=== PATIENT | female | born 1995 | race Caucasian/White ===

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

== ENCOUNTER 2018-07-29 06:57 | Emergency (ER) ==
[2018-07-29 07:07] VITALS: BP 109/67; TEMP 99.7; BMI 19.5
--- NOTE | 2018-07-29 10:41 | ED.PDOC ---
General ED Provider: Dr. GRETA FIORE Chief Complaint: Abdominal Pain Stated Complaint: abdominal pain/flank pain 5 moths Time Seen by Physician: 07:00 (seen the pt's nurse at all times ) Mode of Arrival: Walk-In Information Source: Patient Exam Limitations: No limitations Nursing and Triage Documentation Reviewed and Agree: Yes Does patient meet sepsis criteria?: No System Inflammatory Response Syndrome: Not Applicable Sepsis Protocol: For patient's 13 years and over: Temp is 96.8 and below OR 101 and greater Pulse >90 BPM Resp >20/minute Acutely Altered Mental Status Are patient's symptoms suggestive of a new infection, such as: -Pneumonia -Skin, Soft Tissue -Endocarditis -UTI -Bone, Joint Infection -Implantable Device -Acute Abdominal Infection -Wound Infection -Meningitis -Blood Stream Catheter Infection -Unknown GI Complaint Exam - Abdominal Pain Complaint/Exam Onset: Gradual Duration: 1 day Symptoms Are: Still present Timing: Intermittent Initial Severity: Moderate Current Severity: Mild Location of Pain: Discrete Radiates To: Reports: Flank Character: Reports: Aching Aggravating: Reports: None Alleviating: Reports: None Associated Signs and Symptoms: Reports: Dysuria. Denies: Diaphoresis, Fever, Cough, Chest pain, Dizziness, Back pain, Constipation, Blood in stool, Urinary frequency, Decreased urine output, Decreased appetite, Vaginal bleeding, Vaginal discharge, Nausea, Vomiting, Diarrhea, Sore throat, Decreased activity AAA Risk Factors: Reports: None Cardiac Risk Factors: Reports: None Ectopic Risk Factors: Reports: None Ovarian Torsion Risk Factors: Reports: None Surgical Obstruction Risk Factors: Reports: None Related Surgical History: Reports: None Patient Rh Status: Unknown Abdominal Findings: Present: None Differential Diagnoses: UTI Review of Systems - Review Of Systems Constitutional: Reports: No symptoms Eyes: Reports: No symptoms Ears, Nose, Mouth, Throat: Reports: No symptoms Respiratory: Reports: No symptoms Cardiac: Reports: No symptoms GI: Reports: Abdominal pain : Reports: Dysuria, Flank pain Musculoskeletal: Reports: Back pain Skin: Reports: No symptoms Neurological: Reports: No symptoms Endocrine: Reports: No symptoms Hematologic/Lymphatic: Reports: No symptoms All Other Systems: Reviewed and Negative Past Medical History - Past Medical History Previously Healthy: Yes Endocrine: Reports: None Cardiovascular: Reports: None Respiratory: Reports: None Hematological: Reports: None Gastrointestinal: Reports: None Genitourinary: Reports: None Neuro/Psych: Reports: None Musculoskeletal: Reports: None Cancer: Reports: None Last Menstrual Period: 5 months - Surgical History General Surgical History: Reports: None - Family History Family History: Reports: None - Social History Smoking Status: Former smoker Hx Substance Use: No Alcohol Screening: None Physical Exam - Physical Exam Appearance: Well-appearing, No pain distress, Well-nourished Eyes: ANGELA, EOMI, Conjunctiva clear ENT: Ears normal, Nose normal, Oropharynx normal Respiratory: Airway patent, Breath sounds clear, Breath sounds equal, Respirations nonlabored Cardiovascular: RRR, Pulses normal, No rub, No murmur GI/: Soft, Nontender, No masses, Bowel sounds normal, No Organomegaly Musculoskeletal: Normal strength, ROM intact, No edema, No calf tenderness Skin: Warm, Dry, Normal color Neurological: Sensation intact, Motor intact, Reflexes intact, Cranial nerves intact, Alert, Oriented Psychiatric: Affect appropriate, Mood appropriate Re-Evaluation - Re-Evaluation Time of Re-Evaluation: 10:00 Status: Improved Vital Signs Stable: Yes Pain Level: 1/10 Appearance: NAD Lungs: Clear Skin: Warm and Dry Neuro: Alert and Oriented X3 CV: RRR - Re-Evaluation Time of Re-Evaluation: 10:41 Status: Unchanged Vital Signs Stable: Yes Appearance: NAD Skin: Warm and Dry Neuro: Alert and Oriented X3 CV: RRR Critical Care Note - Critical Care Note Total Time (mins): 0 Course - Course Hematology/Chemistry: 07/29/18 07:47 07/29/18 07:47 Orders, Labs, Meds: Lab Review 07/29/18 07/29/18 07/29/18 07:15 07:47 07:47 WBC 10.75 H RBC 3.60 L Hgb 11.2 L Hct 32.6 L MCV 90.6 MCH 31.1 H MCHC 34.4 RDW Coeff of Dar 13.2 Plt Count 185 Immature Gran % (Auto) 0.6 Neut % (Auto) 81.0 Lymph % (Auto) 8.9 L [place] % (Auto) 8.7 Eos % (Auto) 0.6 Baso % (Auto) 0.2 Immature Gran # (Auto) 0.1 Neut # (Auto) 8.7 H Lymph # (Auto) 1.0 [place] # (Auto) 0.9 Eos # (Auto) 0.1 Baso # (Auto) 0.0 Sodium 135.1 Potassium 3.26 L Chloride 105.2 Carbon Dioxide 18.4 L Anion Gap 14.76 BUN 6.8 L Creatinine 0.34 L Estimated GFR (MDRD) 243.00 BUN/Creatinine Ratio 20.00 Glucose 89.3 Lactic Acid Calcium 8.82 Total Bilirubin 0.40 AST 23.8 ALT 20.5 Alkaline Phosphatase 56.7 Total Protein 6.72 Albumin 3.90 Globulin 2.82 Albumin/Globulin Ratio 1.38 Procalcitonin Urine Color Yellow Urine Clarity Turbid Urine pH 5.5 Ur Specific Dell 1.025 Urine Protein 1+ Urine Glucose (UA) Negative Urine Ketones Trace Urine Blood 1+ Urine Nitrite Positive Urine Bilirubin Negative Urine Urobilinogen 0.2 Ur Leukocyte Esterase 2+ Urine Microscopic RBC 10-20 Urine Microscopic WBC Tntc Ur Squamous Epith Cells 2-5 Amorphous Sediment 3+ Urine Bacteria 4+ 07/29/18 07/29/18 07:47 07:47 WBC RBC Hgb Hct MCV MCH MCHC RDW Coeff of Dar Plt Count Immature Gran % (Auto) Neut % (Auto) Lymph % (Auto) [place] % (Auto) Eos % (Auto) Baso % (Auto) Immature Gran # (Auto) Neut # (Auto) Lymph # (Auto) [place] # (Auto) Eos # (Auto) Baso # (Auto) Sodium Potassium Chloride Carbon Dioxide Anion Gap BUN Creatinine Estimated GFR (MDRD) BUN/Creatinine Ratio Glucose Lactic Acid 0.51 L Calcium Total Bilirubin AST ALT Alkaline Phosphatase Total Protein Albumin Globulin Albumin/Globulin Ratio Procalcitonin 0.05 Urine Color Urine Clarity Urine pH Ur Specific Dell Urine Protein Urine Glucose (UA) Urine Ketones Urine Blood Urine Nitrite Urine Bilirubin Urine Urobilinogen Ur Leukocyte Esterase Urine Microscopic RBC Urine Microscopic WBC Ur Squamous Epith Cells Amorphous Sediment Urine Bacteria Orders Category Date Time Status BLOOD CULTURE Stat LAB 07/29/18 07:47 Received CBC W/ AUTO DIFF Stat LAB 07/29/18 07:47 Completed COMPREHENSIVE METABOLIC PANEL Stat LAB 07/29/18 07:47 Completed LACTIC ACID Stat LAB 07/29/18 07:47 Completed PROCALCITONIN Stat LAB 07/29/18 07:47 Completed URINALYSIS C & S IF INDICATED Stat LAB 07/29/18 07:15 Completed URINE CULTURE Stat LAB 07/29/18 07:30 Received Ceftriaxone Sodium [Rocephin] MEDS 07/29/18 10:56 Discontinued 1 gm .ROUTE .STK-MED ONE Ceftriaxone Sodium [Rocephin] 1 gm MEDS 07/29/18 10:45 Discontinued 0.9 % Sodium Chloride [Sodium Chloride] 50 ml IV ONCE Ringers Lactated Solution [Lactated Ringers] 1,000 ml MEDS 07/29/18 11:01 Discontinued IV BOLUS Sodium Chloride 0.9% [Sodium Chloride] 1,000 ml MEDS 07/29/18 10:44 Discontinued IV BOLUS Medications Discontinued Medications Generic Name Dose Route Start Last Admin Trade Name Freq PRN Reason Stop Dose Admin Sodium Chloride 1,000 mls @ 1,000 mls/hr 07/29/18 10:44 07/29/18 11:07 Sodium Chloride IV 07/29/18 11:43 Not Given BOLUS STA Ceftriaxone Sodium 1 gm/ 50 mls @ 75 mls/hr 07/29/18 10:45 07/29/18 11:06 Sodium Chloride IV 07/29/18 11:24 75 mls/hr ONCE STA Administration Lactated Ringer's 1,000 mls @ 1,000 mls/hr 07/29/18 11:01 07/29/18 11:05 Lactated Ringers IV 07/29/18 12:00 1,000 mls/hr BOLUS STA Administration Vital Signs: Temp Pulse Resp BP Pulse Ox 07/29/18 06:59 99.7 F H 81 16 109/67 98 Departure - Departure Time of Disposition: 13:00 Disposition: HOME SELF-CARE Discharge Problem: UTI (urinary tract infection) Qualifiers: Urinary tract infection type: site unspecified Instructions: Urinary Tract Infection in Children (ED), Urinary Tract Infection in Women (ED), Urinary Tract Infection in (ED) Condition: Good Pt referred to PMD for follow-up: Yes IPMP verified?: No Additional Instructions: Please call your Family Physician as soon as possible to schedule a follow-up appointment.Please call your Family Physician as soon as possible to schedule a follow-up appointment. stephenie KEARNS WOULD LIKE YOU TO SEE THE [facility] IN AM. DO NO TAKE MEDS UNTIL TOMORROW General ED Provider: Dr. GRETA FIORE Chief Complaint: Abdominal Pain Stated Complaint: abdominal pain/flank pain 5 moths Time Seen by Physician: 07:00 (seen the pt's nurse at all times ) Mode of Arrival: Walk-In Information Source: Patient Exam Limitations: No limitations Nursing and Triage Documentation Reviewed and Agree: Yes Does patient meet sepsis criteria?: No System Inflammatory Response Syndrome: Not Applicable Sepsis Protocol: For patient's 13 years and over: Temp is 96.8 and below OR 101 and greater Pulse >90 BPM Resp >20/minute Acutely Altered Mental Status Are patient's symptoms suggestive of a new infection, such as: -Pneumonia -Skin, Soft Tissue -Endocarditis -UTI -Bone, Joint Infection -Implantable Device -Acute Abdominal Infection -Wound Infection -Meningitis -Blood Stream Catheter Infection -Unknown GI Complaint Exam - Abdominal Pain Complaint/Exam Onset: Gradual Duration: 1 day Symptoms Are: Still present Timing: Intermittent Initial Severity: Moderate Current Severity: Mild Location of Pain: Discrete Radiates To: Reports: Flank Character: Reports: Aching Aggravating: Reports: None Alleviating: Reports: None Associated Signs and Symptoms: Reports: Dysuria. Denies: Diaphoresis, Fever, Cough, Chest pain, Dizziness, Back pain, Constipation, Blood in stool, Urinary frequency, Decreased urine output, Decreased appetite, Vaginal bleeding, Vaginal discharge, Nausea, Vomiting, Diarrhea, Sore throat, Decreased activity AAA Risk Factors: Reports: None Cardiac Risk Factors: Reports: None Ectopic Risk Factors: Reports: None Ovarian Torsion Risk Factors: Reports: None Surgical Obstruction Risk Factors: Reports: None Related Surgical History: Reports: None Patient Rh Status: Unknown Abdominal Findings: Present: None Differential Diagnoses: UTI Past Medical History - Past Medical History Previously Healthy: Yes Endocrine: Reports: None Cardiovascular: Reports: None Respiratory: Reports: None Hematological: Reports: None Gastrointestinal: Reports: None Genitourinary: Reports: None Neuro/Psych: Reports: None Musculoskeletal: Reports: None Cancer: Reports: None Last Menstrual Period: 5 months - Surgical History General Surgical History: Reports: None - Family History Family History: Reports: None - Social History Smoking Status: Former smoker Hx Substance Use: No Alcohol Screening: None Physical Exam - Physical Exam Appearance: Well-appearing, No pain distress, Well-nourished Eyes: ANGELA, EOMI, Conjunctiva clear ENT: Ears normal, Nose normal, Oropharynx normal Respiratory: Airway patent, Breath sounds clear, Breath sounds equal, Respirations nonlabored Cardiovascular: RRR, Pulses normal, No rub, No murmur GI/: Soft, Nontender, No masses, Bowel sounds normal, No Organomegaly Musculoskeletal: Normal strength, ROM intact, No edema, No calf tenderness Skin: Warm, Dry, Normal color Neurological: Sensation intact, Motor intact, Reflexes intact, Cranial nerves intact, Alert, Oriented Psychiatric: Affect appropriate, Mood appropriate Re-Evaluation - Re-Evaluation Time of Re-Evaluation: 10:00 Status: Improved Vital Signs Stable: Yes Pain Level: 10 Appearance: NAD Lungs: Clear Skin: Warm and Dry Neuro: Alert and Oriented X3 CV: RRR - Re-Evaluation Time of Re-Evaluation: 10:41 Status: Unchanged Vital Signs Stable: Yes Appearance: NAD Skin: Warm and Dry Neuro: Alert and Oriented X3 CV: RRR Critical Care Note - Critical Care Note Total Time (mins): 0 Course - Course Hematology/Chemistry: 07/29/18 07:47 07/29/18 07:47 Orders, Labs, Meds: Lab Review 07/29/18 07/29/18 07/29/18 07:15 07:47 07:47 WBC 10.75 H RBC 3.60 L Hgb 11.2 L Hct 32.6 L MCV 90.6 MCH 31.1 H MCHC 34.4 RDW Coeff of Dar 13.2 Plt Count 185 Immature Gran % (Auto) 0.6 Neut % (Auto) 81.0 Lymph % (Auto) 8.9 L [place] % (Auto) 8.7 Eos % (Auto) 0.6 Baso % (Auto) 0.2 Immature Gran # (Auto) 0.1 Neut # (Auto) 8.7 H Lymph # (Auto) 1.0 [place] # (Auto) 0.9 Eos # (Auto) 0.1 Baso # (Auto) 0.0 Sodium 135.1 Potassium 3.26 L Chloride 105.2 Carbon Dioxide 18.4 L Anion Gap 14.76 BUN 6.8 L Creatinine 0.34 L Estimated GFR (MDRD) 243.00 BUN/Creatinine Ratio 20.00 Glucose 89.3 Lactic Acid Calcium 8.82 Total Bilirubin 0.40 AST 23.8 ALT 20.5 Alkaline Phosphatase 56.7 Total Protein 6.72 Albumin 3.90 Globulin 2.82 Albumin/Globulin Ratio 1.38 Procalcitonin Urine Color Yellow Urine Clarity Turbid Urine pH 5.5 Ur Specific Dell 1.025 Urine Protein 1+ Urine Glucose (UA) Negative Urine Ketones Trace Urine Blood 1+ Urine Nitrite Positive Urine Bilirubin Negative Urine Urobilinogen 0.2 Ur Leukocyte Esterase 2+ Urine Microscopic RBC 10-20 Urine Microscopic WBC Tntc Ur Squamous Epith Cells 2-5 Amorphous Sediment 3+ Urine Bacteria 4+ 07/29/18 07/29/18 07:47 07:47 WBC RBC Hgb Hct MCV MCH MCHC RDW Coeff of Dar Plt Count Immature Gran % (Auto) Neut % (Auto) Lymph % (Auto) [place] % (Auto) Eos % (Auto) Baso % (Auto) Immature Gran # (Auto) Neut # (Auto) Lymph # (Auto) [place] # (Auto) Eos # (Auto) Baso # (Auto) Sodium Potassium Chloride Carbon Dioxide Anion Gap BUN Creatinine Estimated GFR (MDRD) BUN/Creatinine Ratio Glucose Lactic Acid 0.51 L Calcium Total Bilirubin AST ALT Alkaline Phosphatase Total Protein Albumin Globulin Albumin/Globulin Ratio Procalcitonin 0.05 Urine Color Urine Clarity Urine pH Ur Specific Dell Urine Protein Urine Glucose (UA) Urine Ketones Urine Blood Urine Nitrite Urine Bilirubin Urine Urobilinogen Ur Leukocyte Esterase Urine Microscopic RBC Urine Microscopic WBC Ur Squamous Epith Cells Amorphous Sediment Urine Bacteria Orders Category Date Time Status BLOOD CULTURE Stat LAB 07/29/18 07:47 Received CBC W/ AUTO DIFF Stat LAB 07/29/18 07:47 Completed COMPREHENSIVE METABOLIC PANEL Stat LAB 07/29/18 07:47 Completed LACTIC ACID Stat LAB 07/29/18 07:47 Completed PROCALCITONIN Stat LAB 07/29/18 07:47 Completed URINALYSIS C & S IF INDICATED Stat LAB 07/29/18 07:15 Completed URINE CULTURE Stat LAB 07/29/18 07:30 Received Vital Signs: Temp Pulse Resp BP Pulse Ox 07/29/18 06:59 99.7 F H 81 16 109/67 98 Departure - Departure Discharge Problem: UTI (urinary tract infection) Qualifiers: Urinary tract infection type: site unspecified Instructions: Urinary Tract Infection in Children (ED), Urinary Tract Infection in Women (ED), Urinary Tract Infection in (ED) Condition: Good Pt referred to PMD for follow-up: Yes IPMP verified?: No Additional Instructions: Please call your Family Physician as soon as possible to schedule a follow-up appointment. Allergies/Adverse Reactions: Allergies No Known Allergies Allergy (Verified 07/29/18 07:07) Home Medications: Ambulatory Orders Cephalexin [Keflex] 500 mg PO Q8HR #20 ml 07/29/18 Pnv No.95/Ferrous Fum/Folic AC [ Caplet] 1 each PO DAILY 07/29/18 Disposition Discussed With: Patient Please call your Family Physician as soon as possible to schedule a follow-up appointment.start antibiotics in amPlease call your Family Physician as soon as possible to schedule a follow-up appointment. Prescriptions: Cephalexin [Keflex] 500 mg PO Q8HR #20 ml Allergies/Adverse Reactions: Allergies No Known Allergies Allergy (Verified 07/29/18 07:07) Home Medications: Ambulatory Orders Cephalexin [Keflex] 500 mg PO Q8HR #20 ml 07/29/18 Pnv No.95/Ferrous Fum/Folic AC [ Caplet] 1 each PO DAILY 07/29/18 Disposition Discussed With: Patient
[2018-07-29] MEDS ORDERED: ROCEPHIN 1 GM in SODIUM CHLORIDE 50 ML IV STA ×2 (10:43→10:45)
[2018-07-29] MEDS ORDERED: SODIUM CHLORIDE 1,000 ML IV STA (10:44)
[2018-07-29] MEDS ORDERED: ROCEPHIN ONE (10:56)
[2018-07-29] MEDS ORDERED: LACTATED RINGERS 1,000 ML IV STA (11:01)
== END 2018-07-29 13:09 | disposition home or self-care (01) ==
LOC: ED 06:57
DX: O23.42 Unspecified infection of urinary tract in pregnancy, second trimester (principal)
CPT/HCPCS: 36415; 80053; 81001; 83605; 84145; 85025; 87040; 87086; 87186; 96361; 96365; 99283